=== PATIENT | female | born 1975 | race African-American/Black ===

== ENCOUNTER 2021-11-24 11:59 | Emergency (ER) | payer OTHER ==
[2021-11-24] MEDS ORDERED: Ketorolac Tromethamine 30 MG/ML VIAL ONE (13:24)
[2021-11-25 19:53] LABS: SARS-CoV-2 PCR by NAA Not Detected (NotDetected)
== END 2021-11-24 13:50 | disposition home or self-care (01) ==
LOC: CSHERS 11:59
DX: J06.9 Acute upper respiratory infection, unspecified (principal); I10 Essential (primary) hypertension; G43.909 Migraine, unspecified, not intractable, without status migrainosus; F17.210 Nicotine dependence, cigarettes, uncomplicated; Z20.822 Contact with and (suspected) exposure to COVID-19
CPT/HCPCS: 96372; 99284; J1885; U0003; U0005

== ENCOUNTER 2022-06-09 13:04 | Emergency (ER) | payer OTHER ==
[2022-06-09] MEDS ORDERED: Ketorolac Tromethamine 30 MG/ML VIAL ONE (14:21)
[2022-06-09] MEDS ORDERED: Ondansetron ODT 4 MG TAB ONE (14:21)
== END 2022-06-09 14:38 | disposition home or self-care (01) ==
LOC: CSHERS 13:04
DX: R11.2 Nausea with vomiting, unspecified (principal); Z20.822 Contact with and (suspected) exposure to COVID-19; I10 Essential (primary) hypertension; F17.210 Nicotine dependence, cigarettes, uncomplicated
CPT/HCPCS: 96372; 99284; J1885; Q0162; U0003; U0005

== ENCOUNTER 2022-10-29 18:59 | Emergency (ER) | payer OTHER ==
[2022-10-29] MEDS ORDERED: predniSONE 20 MG TAB PO SCH (22:00)
== END 2022-10-29 22:47 | disposition home or self-care (01) ==
LOC: CSHERS 18:59
DX: J20.9 Acute bronchitis, unspecified (principal); I10 Essential (primary) hypertension; F17.210 Nicotine dependence, cigarettes, uncomplicated
CPT/HCPCS: 87804; J7512; J7620

== ENCOUNTER → 2023-03-15 07:11 | Emergency (ER) | payer OTHER ==
[~2023-03-15 07:11] MED LIST: Ondansetron ODT 4 MG TAB ONE
== END | disposition home or self-care (01) ==
LOC: CSHERS 07:11
DX: B34.9 Viral infection, unspecified (principal); I10 Essential (primary) hypertension; F17.210 Nicotine dependence, cigarettes, uncomplicated
CPT/HCPCS: 99283; Q0162

== ENCOUNTER 2023-09-18 12:03 | Emergency (ER) | payer OTHER ==
[2023-09-18 13:13] LABS: #Basophils 0.1 10x3/uL (0.0-0.2); #Eosinphils 0.4 10x3/uL (0.0-0.5); #Monocytes 0.8 10x3/uL (0.0-1.1); #Neutrophils 6.3 10x3/uL (1.5-8.4); %Basophils 0.5 % (0.0-2.0); %Eosinophils 3.5 % (0.0-6.0); %Lymphocytes 31.5 % (18.0-47.0); %Monocytes 7.4 % (0.0-10.0); %Neutrophils 56.8 % (40.0-75.0); Hematocrit 39.5 % (34.9-44.5); Mean Corpuscular HGB CONC 32.9 g/dL (32.0-36.0); Mean Corpuscular Hemoglobin 27.8 pg (27.0-33.0); Mean Corpuscular Volume 84.6 fl (81.6-98.3); Mean Platelet Volume 10.3 fl (7.4-10.4); Platelet Count 325 10x3/uL (150-450); RBC Distribution Width 15.5 % (11.5-14.5); Red Blood Cell (RBC) Count 4.67 10x6/uL (3.90-5.03); White Blood Cell (WBC) Count 11.1 10x3/uL (3.5-10.5)
[2023-09-18 13:25] LABS: ALT (SGPT) 11 U/L (8-55); AST (SGOT) 15 U/L (5-34); Alkaline Phosphatase 78 U/L (40-110); Anion Gap 16 mmol/L (10-20); BUN (Urea Nitrogen) 15 mg/dL (7.0-18.7); Bilirubin, Total 0.3 mg/dL (0.2-1.2); Calc. Creatinine Clearance 0 mL/min (70-130); Calcium 9.2 mg/dL (7.8-10.44); Carbon Dioxide 27 mmol/L (22-29); Chloride 101 mmol/L (98-107); Estimated GFR 58; Globulin 3.2 g/dL (2.4-3.5); Glucose 117 mg/dL (70-105); Potassium 4.2 mmol/L (3.5-5.1); Protein, Total 7.2 g/dL (6.0-8.3); Sodium 140 mmol/L (136-145)
[2023-09-18 13:29] LABS: Troponin I Less than 0.010 ng/mL (< 0.028)
[2023-09-18] MEDS ORDERED: methylPREDNISolone Sod Succ/PF 125 MG/2 ML VIAL ONE (14:27)
[2023-09-18] MEDS ORDERED: Ipratropium/Albuterol 3 ML NEB ONE (14:33)
[2023-09-18 16:17] LABS: SARS-CoV-2 NAA Rapid Test Not Detected (NotDetected)
== END 2023-09-18 16:50 | disposition home or self-care (01) ==
LOC: CSHERS 12:03
DX: J20.9 Acute bronchitis, unspecified (principal); I10 Essential (primary) hypertension; F17.210 Nicotine dependence, cigarettes, uncomplicated; Z20.822 Contact with and (suspected) exposure to COVID-19
CPT/HCPCS: 36415; 71045; 80053; 84484; 85025; 93005; 96372; J2930; J7620

== ENCOUNTER 2024-06-19 08:22 | Emergency (ER) | payer SELFPAY ==
[2024-06-19] MEDS ORDERED: Orphenadrine Citrate 60 MG/2 ML VIAL ONE (08:43)
[2024-06-19 09:40] LABS: Influenza A by NAA Not Detected (NotDetected); Influenza B by NAA Not Detected (NotDetected); SARS-CoV-2 NAA Rapid Test Not Detected (NotDetected)
== END 2024-06-19 09:20 | disposition home or self-care (01) ==
LOC: CSHERS 08:22
DX: S39.012A Strain of muscle, fascia and tendon of lower back, initial encounter (principal); M79.644 Pain in right finger(s); J06.9 Acute upper respiratory infection, unspecified; I10 Essential (primary) hypertension; F17.210 Nicotine dependence, cigarettes, uncomplicated; Z55.6 Problems related to health literacy; X50.0XXA Overexertion from strenuous movement or load, initial encounter; Y99.0 Civilian activity done for income or pay
CPT/HCPCS: 96372; 99283; J2360

== ENCOUNTER 2024-12-02 11:54 | Emergency (ER) | payer OTHER, SELFPAY ==
[2024-12-02] MEDS ORDERED: Ipratropium/Albuterol 3 ML NEB ONE (12:16)
[2024-12-02] MEDS ORDERED: Acetaminophen 500 MG TAB ONE (12:29)
[2024-12-02] MEDS ORDERED: methylPREDNISolone Sod Succ/PF 125 MG/2 ML VIAL ONE (12:29)
== END 2024-12-02 13:12 | disposition home or self-care (01) ==
LOC: CSHERS 11:54
DX: U07.1 COVID-19 (principal); I10 Essential (primary) hypertension; F17.210 Nicotine dependence, cigarettes, uncomplicated
CPT/HCPCS: 87428; 96372; J2919; J7620

== ENCOUNTER 2024-12-15 18:54 | Emergency (ER) | payer OTHER ==
[2024-12-15] MEDS ORDERED: Dexamethasone 10 MG/ML VIAL ONE (19:20)
[2024-12-15] MEDS ORDERED: Albuterol 2.5 MG (3 mL) NEB ONE (19:29)
== END 2024-12-15 20:12 | disposition home or self-care (01) ==
LOC: CSHERS 18:54
DX: J98.8 Other specified respiratory disorders (principal); I10 Essential (primary) hypertension; F17.210 Nicotine dependence, cigarettes, uncomplicated; Z86.16 Personal history of COVID-19
CPT/HCPCS: 94640; 94760; 96372; J1100; J7611

== ENCOUNTER 2025-10-06 00:28 | Emergency (ER) | payer OTHER ==
[2025-10-06] MEDS ORDERED: Dexamethasone 10 MG/ML VIAL ONE (02:20)
[2025-10-06] MEDS ORDERED: Acetaminophen 500 MG TAB ONE (02:20)
== END 2025-10-06 01:59 | disposition home or self-care (01) ==
LOC: CSHERS 00:28
DX: L03.011 Cellulitis of right finger (principal); R09.81 Nasal congestion; R05.9 Cough, unspecified; R09.89 Other specified symptoms and signs involving the circulatory and respiratory systems; I10 Essential (primary) hypertension; F17.200 Nicotine dependence, unspecified, uncomplicated
CPT/HCPCS: 87428; 96372; 99283; J1100